=== PATIENT | male | born 1985 | race Caucasian/White ===

== ENCOUNTER 2023-12-17 09:09 | Outpatient (CLI) | payer BC, SELFPAY | END 2023-12-17 09:10 | disposition home or self-care (01) | PROVIDERS: PCP Family Medicine; Visit Provider Family Medicine | DX: R53.83 Other fatigue (principal); R06.09 Other forms of dyspnea; Z13.29 Encounter for screening for other suspected endocrine disorder | CPT/HCPCS: 80053; 84443 ==

== ENCOUNTER 2025-05-04 13:36 | Outpatient (CLI) | payer OTHER, SELFPAY | END 2025-05-04 13:37 | disposition home or self-care (01) | PROVIDERS: PCP Family Medicine; Visit Provider Family Medicine | DX: Z01.818 Encounter for other preprocedural examination (principal); Z82.49 Family history of ischemic heart disease and other diseases of the circulatory system | CPT/HCPCS: 80048; 82465; 83718 ==

== ENCOUNTER 2025-05-11 06:20 | Day surgery (SDC) | payer OTHER, SELFPAY ==
[2025-05-11] VITALS (17 sets, daily range): BP systolic 103–124; BP diastolic 66–94; PULSE 60–85; RESP 14–16; TEMP 36.7–37.7; O2SAT 72–98; BMI 24.0
[2025-05-11] MEDS: SODIUM CHLORIDE 0.9 % (FLUSH) 10 ML SYRINGE IVF (07:08)
[2025-05-11] MEDS: LACTATED RINGERS 1000 ML 1,000 ML 100 ML IV ×2 (07:08→10:16)
--- NOTE | 2025-05-11 07:23 | W.PM.H&PU ---
History & Physical Update History & Physical Update H&P Reviewed and patient assessed: No changes noted
--- NOTE | 2025-05-11 07:24 | PM.ORPRC ---
Procedure Note Date of procedure: 05/11/25 Procedure: PREOPERATIVE DIAGNOSIS: 1. Right knee medial meniscus bucket-handle tear POSTOPERATIVE DIAGNOSIS: 1. Right knee medial meniscus bucket-handle tear PROCEDURE: 1. Right knee arthroscopic inside-out medial meniscus repair SURGEON: Yoni Simpson M.D. ASSISTANTS: Светлана Riojas P.A.-C.; Ronnie Howard Surgical assistants were critical for this case to aid in patient positioning, knee manipulation, instrument exchange, suture management, and wound closure. ANESTHESIA: Spinal EBL: 5 mL TOURNIQUET: 111 minutes at 250 mmHg COMPLICATIONS: None evident IMPLANTS: Arthrex SutureTape sutures INDICATIONS: Patient is a 39-year-old male with recent history of right knee pain and mechanical symptoms. MRI was performed, which revealed displaced bucket-handle medial meniscus tear. Recommendation was subsequently made for surgical intervention consisting of right knee arthroscopic medial meniscus repair to reduce allow for meniscus healing, reduce knee pain, improve knee function, and reduce risk and rate of arthritis progression. Prior to surgery, the risks and benefits of the procedure were discussed with patient, all questions were answered, and informed consent was obtained. FINDINGS: Examination under anesthesia revealed negative Emely's and posterior drawer. Knee was stable to varus and valgus stress. Arthroscopic examination revealed bucket-handle tear involving the posterior horn and body of the medial meniscus. There was also a small radial tear in the white-white zone at the junction of the anterior horn and posterior horn. Anterior root, posterior root, and anterior horn were intact. There was normal appearing cartilage in the medial, lateral, and patellofemoral compartments. ACL, PCL, and lateral meniscus were intact. No intra-articular loose bodies. DESCRIPTION OF PROCEDURE: Patient was seen preoperatively and operative site was marked. He was then brought to the operating room where spinal anesthesia was administered. Patient was then placed supine on the operating table and given IV Ancef preoperatively for prophylaxis. A tourniquet was placed on the operative thigh. The operative lower extremity was prepped and draped in the appropriate sterile fashion, and the operative leg was placed into the leg davis. A surgical time-out was performed confirming patient identity, surgical site, and procedure. The operative lower extremity was exsanguinated and tourniquet inflated to 250 mmHg. Anterolateral and anteromedial portal sites were injected with 0.25% bupivacaine with epinephrine. Anterolateral portal established with an 11 blade. Anteromedial portal was established after localization with spinal needle. A portion of the retropatellar fat pad was removed with the shaver to allow for adequate visualization. Diagnostic arthroscopy was performed with findings as noted above. Attention was then directed to the repair of the medial meniscus. The meniscus was then reduced using a probe. After the meniscus was reduced, tear site was prepped with the arthroscopic rasp. An incision measuring approximately 4 cm was then made medially along the posterior border of the tibia centered slightly below the joint line. Incision was carried through subcutaneous tissues with care taken to protect the saphenous nerve. Sartorius fascia was incised and dissection was carried deep posterior to the medial collateral ligament. Joint capsule was identified and plane between the joint capsule and posterior structures was developed. A speculum cannula was then placed in this interval to protect posterior structures from the meniscus repair needles. Meniscus repair was then performed using the Arthrex ZoneNavigator system to pass FiberTape sutures in both vertical and horizontal mattress fashion on both the superior and inferior surface of the meniscus. A total of 7 sutures were used. After all sets of sutures were passed, sutures were tensioned and tied over the top of the joint capsule posteriorly. Remnant sutures were then cut and removed. A probe was then introduced into the joint and meniscus was noted to be firmly fixed in anatomic position. The radial tear at the junction of the posterior horn and body was gently debrided with the arthroscopic shaver. A power pick was then used to microfracture the notch to create bone bleeding to assist in meniscus healing. The tourniquet was then released and blood was noted to emanate from the power pick microfracture sites. At this stage, surgical instruments were removed, and excess fluid was drained from the joint. A posterior medial incision was irrigated with normal saline. Sartorius fascia was repaired with 2-0 Vicryl [id number] interrupted sutures. Skin incision was closed with 2-0 Vicryl and 2-0 Stratafix. Portal sites were closed with 3-0 Monocryl subcuticular stitches. Sterile dressings were applied, and the operative extremity was placed into a hinged knee brace. The patient was awoken from anesthesia and transferred to the PACU in stable condition. PLAN: 1. Ice and elevation for pain and swelling. 2. Acetaminophen and oxycodone as needed for pain control. 3. Aspirin 81 mg twice daily for 2 weeks for DVT prophylaxis. 4. Weight-bearing as tolerated with brace locked in extension. Use crutches as needed for assistance with ambulation. 5. Knee brace to be locked in extension when ambulating. Brace may be unlocked and knee flexed to 90? when not ambulating. 6. Knee range of motion and quad sets/straight leg raise regularly. 7. Physical therapy per the Standard Meniscus Repair Rehabilitation Protocol. 8. Follow up in orthopedic clinic in 1-2 weeks for a wound check.
[2025-05-11] MEDS: BUPIVACAINE 0.25 %/EPI 1:200K 30 ml INJECTION (08:12)
--- NOTE | 2025-05-11 10:33 | P.ANES_ITS ---
Anesthesia Charges Start Date/Time Anesthesia Start Date: 05/11/25 Anesthesia Start Time: 07:36 Stop Date/Time Anesthesia Stop Date: 05/11/25 Anesthesia Stop Time: 10:40 Coding CPT Codes CPT Codes: ANESTH KNEE JOINT SURGERY - 55010 ([id number]) P2 - PATIENT W/MILD SYST DISEASE, QK - CALENDER ROLL PRESS OPERATOR 2-4 CNCRNT ANES PROC, QX - PULMONOLOGIST INTENSIVIST SVC W/ MD MED DIRECTION
--- NOTE | 2025-05-11 10:33 | W.ANESCHARGE ---
Anesthesia Charges Start Date/Time Anesthesia Start Date: 05/11/25 Anesthesia Start Time: 07:36 Stop Date/Time Anesthesia Stop Date: 05/11/25 Anesthesia Stop Time: 10:40 Coding CPT Codes CPT Codes: ANESTH KNEE JOINT SURGERY - 73254 ([id number]) P2 - PATIENT W/MILD SYST DISEASE, QK - ELECTRICAL HIGH TENSION TESTER 2-4 CNCRNT ANES PROC, QX - MELT SUPERVISOR SVC W/ MD MED DIRECTION
--- NOTE | 2025-05-11 10:44 | W.PM.NB ---
Nerve Block Nerve Block Time Seen by Provider: :28 Date Seen: 05/11/25 Type of block requested by surgeon for post-operative analgesia: geniculars Side: right Time out performed: Yes Verification of patient name: Yes Verification of date of : Yes Site marking: site marked Name of person performing procedure: Jasen Continuous monitoring Was continuous monitoring of O2 sat, B/P, diagnostic cardiac sonographer, recorded every 15 minutes?: Yes Procedure Checklist: sterile prep, needles and gloves Ultrasound guided. Images saved: No Medications given in 5ml increments after negative aspiration: Ropivicaine %: 0.5 mL: 15 Needle gauge: 25 Precedex (mcg): 25 Patient tolerated procedure well: Yes Block Charges Block Charge (with Pro Fee): Genicular Nerve Block Use of Ultrasound Machine for Block: No
--- NOTE | 2025-05-11 10:46 | P.ANES_ITS ---
Anesthesia Charges Start Date/Time Anesthesia Start Date: 05/11/25 Anesthesia Start Time: 07:36 Stop Date/Time Anesthesia Stop Date: 05/11/25 Anesthesia Stop Time: 10:40 Coding CPT Codes CPT Codes: ANESTH KNEE JOINT SURGERY - 13931 ([id number]) P2 - PATIENT W/MILD SYST DISEASE, QK - UNIFORM CAP OPERATOR 2-4 CNCRNT ANES PROC, QX - TRAFFIC COUNTER SVC W/ MD MED DIRECTION
--- NOTE | 2025-05-11 10:46 | W.ANESCHARGE ---
Anesthesia Charges Start Date/Time Anesthesia Start Date: 05/11/25 Anesthesia Start Time: 07:36 Stop Date/Time Anesthesia Stop Date: 05/11/25 Anesthesia Stop Time: 10:40 Coding CPT Codes CPT Codes: ANESTH KNEE JOINT SURGERY - 96104 ([id number]) P2 - PATIENT W/MILD SYST DISEASE, QK - PLATFORM CONSULTANT 2-4 CNCRNT ANES PROC, QX - FIRE CONTROL TECHNICIAN SVC W/ MD MED DIRECTION
[2025-05-11] MEDS: OxyCODONE/APAP 5-325 TABLET PO (11:44)
--- NOTE | 2025-05-11 13:05 | REH.PT ---
Pt provided and fit for axillary crutches. No AD training needed per pt.
== END 2025-05-11 12:55 | disposition home or self-care (01) ==
PROVIDERS: PCP Family Medicine; Visit Provider Orthopaedic Surgery
PROC: (CPT 29870; principal; 2025-05-11 07:45)
DX: S83.211A Bucket-handle tear of medial meniscus, current injury, right knee, initial encounter (principal); G89.18 Other acute postprocedural pain
CPT/HCPCS: 29882; 01400; 64454; A9270; J0690; J1100; J1171; J2250; J2405; J2704; J2795; J3010; J3490; J7120; L1833

== ENCOUNTER 2025-05-12 20:24 | Emergency (ER) | payer OTHER, SELFPAY ==
[2025-05-12 20:25] VITALS: BP 133/78; PULSE 104; RESP 16; TEMP 37; O2SAT 95; BMI 24.7
--- OUTSIDE RECORDS SUMMARY | 2025-05-12 20:27 | XMS_ITS | Clinical Summary ---
Author Organization [facility] Address [address] [place] [id number] Care Team Providers Care Car Hostler Name Role Phone Pcp, No Primary Care Provider Unavailabl e Allergies No known active allergies Medications tacrolimus (PROTOPIC) 0.1 % ointment APPLY TOPICALLY TO THE AFFECTED AREA TWICE DAILY NEEDED FOR MILD FLARES Active Active Problems Problem Noted Date Diagnosed Date Other acne 09/21/2006 Attention deficit disorder with hyperactivity(31 4.01) 09/21/2006 Injury, other and unspecified, shoulder and uppe r arm 09/21/2006 Encounters Date Type Department Care Team Description 04/18/[address] [facility] [address] [place] [address] Modesto Carson MD Referral (ortho surgeon ) 04/16/[address] [facility] [address] [place] [address] Modesto Carson MD Questions (SUMA signed) 04/13/2025 2:40 PM CDT Office Visit [facility] [address] [place] [address] Modesto Carson MD [facility] (Follow-up Work Comp DOI: 03/15/2025 RIGHT Knee/Review MRI) 04/13/2025 Travel 04/11/2025 10:17 AM CDT - 04/11/2025 11:59 PM CDT Hospital Encounter [facility] [address] [facility] [place] [address] Modesto Carson MD Encounter related to worker's compensation claim; Acute pain of right knee 04/11/2025 Travel 04/09/2025 10:20 AM CDT Office Visit [facility] [address] [facility] [place] [address] Modesto Carson MD Occ Med (Follow-up RIGHT Knee injury at work DOI 03/15/2025) 04/09/2025 Travel 03/19/2025 9:55 AM CDT Office Visit [facility] [address] [facility] [place] [address] Modesto Carson MD Occ Med (Consultation for RIGHT Knee injury that happened while at work/DOI 03/15/2025) 03/19/2025 Travel 03/16/2025 Orders Only [facility] Scanner 1 scan: (1-Ord) [facility], KNEE RT 3 V, 03/16/2025 03/16/[address] [facility] [address] [facility] [place] [address] Pcp, No Appointment Request (UNABLE TO SCHEDULE WITHIN 3 DAYS) from Last 3 Months Immunizations Immunization Administration Dates Next Due DTP 02/05/1992, 8,04/16/1987,02/12/1987 ,1986 HIB PRP-D (ProHIBIT) 04/01/1988 Hepatitis A (Adult) 08/06/2008 Hepatitis B (Peds) 07/09/2000,02/02/2000, 000 MMR 10/10/1997,01/17/1988 Meningococcal Vaccine (Menactra) 08/06/2008 Oral Polio Vaccine 02/05/1992,04/01/1988, 987,1986 Td (Age >=7 Years) 10/10/1997 Tdap 08/06/2008 Family History Medical History Relation Name Comments Seizures Brother after concussio n No Known Problems Father ADD / ADHD Mother GRACIE disease Mother Thyroid Disease Mother Heart attack Paternal Grandfather No Known Problems Paternal Grandmother Relation Name Status Comments Brother Alive Father Alive Mother Alive Paternal Grandfather Paternal Grandmother Alive Social History Tobacco Use Types Packs/Day Years Used Date Smoking Tobacco: Every Day Cigarettes Smokeless Tobacco: Former Tobacco Cessation:Ready to Q uit: Not Asked; Counseling Given: Not Answered Alcohol Use Standard Drinks/Week Comments Yes 21 (1 standard drink = 0.6 oz pu re alcohol) 4-5 beer every day PHQ-2 Answer Date Recorded PHQ-2 Score 2 09/10/2018 Social Connections Answer Date Recorded Do you often feel lonely or isolated from those around you? 0 03/19/2025 Financial Resource Strain Answer Date R ecorded Difficulty of Paying Living Expenses 3 03/19/2025 Difficulty of Paying Living Expenses Not on file 03/19/2025 Food Insecurity Answer Date Recorded Do you worry your food will run out before you are able to buy more? 1 03/19/2025 Transportation Needs Answer Date Record ed Does lack of transportation keep you from medica l appointments? 1 03/19/2025 Does lack of transportation keep you from work, meetings or getting things that you need? 1 03/19/2025 Housing Stability Answer Date Recorded What is your housing situation today? 1 03/19/2025 Utilities Answer Date Recorded Do you have trouble paying f or utilities (for example, heat, electricity, water, phone)? 1 03/19/2025 Sex and Gender Information Value Date Recorded Sex Assigned at Not on file Legal Sex Male 5:26 AM DATA PROCESSING SUPERVISOR Gender Identity Not on file Sexual Orientation Not on file Obstetrics History Last Filed Vital Signs Vital Sign Reading Time Taken Comments Blood Pressure 116/77 04/13/2025 2:38 PM CDT Pulse 75 04/13/2025 2:38 PM CDT Temperature 36.9 C (98.4 F) 02/02/2018 4:09 PM CDT Respiratory Rate 20 02/02/2018 4:09 PM CDT Oxygen Saturation 97% 04/13/2025 2:38 PM CDT Inhaled Oxygen Concentration - - Weight 79.2 kg (174 lb 8 oz) 04/09/2025 10:27 AM CDT Height 181 cm (5' 11.26) 02/08/2018 3:43 PM CDT Body Mass Index 24.16 02/08/2018 3:43 PM CDT Plan of Treatment Health Maintenance Due Date Last Done Comments HIV for age 15-65 2001 Hepatitis C screening for ag e 18-79 2004 Pneumococcal series for age 6-49 (1 of 2 - PCV) 2005 HPV series for age 9-45 (1 - 3-dose SCDM series) 2013 Tetanus booster 08/06/2018 08/06/2008, 10/10/1997 BMI (ht and wt on same day) for age 18+ 02/08/2019 02/08/2018, 02/02/2018, 06/10/2017, Additional history exists Depression screening for age 12+ 02/10/2019 02/10/2018, 02/08/2018, 07/08/2016 Lipids for age 35-44 2021 Influenza Vaccine (#1) 2025 RSV vaccine for adults or (1 - 1-dose 75+ series) 2061 Hepatitis B series for 19+ Completed 07/09, 02/02/2000, 01/01/2000 Procedures Procedure Name Priority Date/Time Associated Diagnosis Comments MR KNEE RIGHT WO Routine 04/11/2025 11:1 2 AM CDT Encounter related to worker's compensation claim Acute pain of right knee SCAN-RADIOLOGY REPORT 03/16/2025 12:00 AM CDT from Last 3 Months Results * MR KNEE RIGHT WO (04/11/2025 11:12 AM CDT) Anatomical Region Laterality Modality KNEE R Magnetic Resonan ce 04/11/2025 3:14 PM CDT Impressions 04/11/2025 3:14 PM CDT 1. Displaced bucket-handle tear of the medial meniscus. 2. Moderate joint effusion. 3. Mild chronic thickening of the MCL. No acute MCL injury. 4. Posterolateral corner capsular edema. 5. ACL intact. Dictated by Floyd Cardona MD @ 04/11/2025 3:14:12 PM (Electronically Signed) Narrative 04/11/2025 3:14 PM CDT For Patients: As a result of the Cures Act, medical imaging exams and procedure reports are released immediately into your electronic medical record. You may view this report before your referring provider. If you have questions, please contact your health care provider. CLINICAL INDICATION: Acute right knee pain. COMPARISON STUDIES: Radiographs 03/16/2025. TECHNICAL: Noncontrast MRI of the right knee. 1.5 gonzález MRI scanner. Axial, sagittal and coronal T1, PD, PD FS and T2 FS images. FINDINGS: MEDIAL COMPARTMENT: Medial Meniscus: There is a displaced bucket-handle tear of the medial meniscus with the bucket-handle portion of the meniscus displaced laterally to the intercondylar notch. This is noted on coronal PD fat-sat image number 20 of series 6 for example. Articular Cartilage: Maintained. LATERAL COMPARTMENT: Lateral Meniscus: Intact. Articular Cartilage: Maintained. PATELLOFEMORAL COMPARTMENT: Articular Cartilage: Maintained. LIGAMENTS: Anterior Cruciate Ligament: Intact. Posterior Cruciate Ligament: Intact. MEDIAL COLLATERAL LIGAMENT AND POSTEROMEDIAL CORNER COMPLEX: Medial Collateral Ligament: Slight chronic thickening of the proximal MCL. No acute MCL injury. Medial Head of the Gastrocnemius and Semimembranosus Tendons: Normal. LATERAL COLLATERAL LIGAMENT COMPLEX AND POSTEROLATERAL CORNER COMPLEX: Fibular Collateral Ligament: Normal. Distal Biceps Femoris Tendon Complex: Normal. Iliotibial Band: Normal. Popliteus Tendon: Normal. Posterolateral Corner Capsule: Mild posterolateral corner capsular edema. EXTENSOR MECHANISM: Distal Quadriceps Tendon: Intact. Patellar Tendon: Intact. Medial Patellar Retinaculum and Medial Patellofemoral Ligament: Intact. Lateral Patellar Retinaculum: Intact. Normal patellar alignment. No patella ashley. Normal trochlear depth. Normal lateral trochlear inclination. JOINT SPACE AND CAPSULE: Moderate joint effusion. BONES AND SOFT TISSUES: No acute fracture or avascular necrosis.No significant popliteal cyst.Subcutaneous edema is present. Procedure Note Floyd Cardona MD - 04/11/2025 For Patients: As a result of the 21st Century Cures Act, medical imagingexams and procedure reports are released immediately into your electronicmedical record. You may view this report before your referring provider.If you have questions, please contact your health care provider. CLINICAL INDICATION: Acute right knee pain. COMPARISON STUDIES: Radiographs 03/16/2025. TECHNICAL: Noncontrast MRI of the right knee. 1.5 gonzález MRI scanner. Axial, sagittaland coronal T1, PD, PD FS and T2 FS images. FINDINGS: MEDIAL COMPARTMENT: Medial Meniscus: There is a displaced bucket-handle tear of the medialmeniscus with the bucket-handle portion of the meniscus displacedlaterally to the intercondylar notch. This is noted on coronal PD fat-satimage number 20 of series 6 for example. Articular Cartilage: Maintained. LATERAL COMPARTMENT: Lateral Meniscus: Intact. Articular Cartilage: Maintained. PATELLOFEMORAL COMPARTMENT: Articular Cartilage: Maintained. LIGAMENTS: Anterior Cruciate Ligament: Intact. Posterior Cruciate Ligament: Intact. MEDIAL COLLATERAL LIGAMENT AND POSTEROMEDIAL CORNER COMPLEX: Medial Collateral Ligament: Slight chronic thickening of the proximal MCL.No acute MCL injury. Medial Head of the Gastrocnemius and Semimembranosus Tendons: Normal. LATERAL COLLATERAL LIGAMENT COMPLEX AND POSTEROLATERAL CORNER COMPLEX: Fibular Collateral Ligament: Normal. Distal Biceps Femoris Tendon Complex: Normal. Iliotibial Band: Normal. Popliteus Tendon: Normal. Posterolateral Corner Capsule: Mild posterolateral corner capsularedema. EXTENSOR MECHANISM: Distal Quadriceps Tendon: Intact. Patellar Tendon: Intact. Medial Patellar Retinaculum and Medial Patellofemoral Ligament: Intact. Lateral Patellar Retinaculum: Intact. Normal patellar alignment. No patella ashley. Normal trochlear depth. Normallateral trochlear inclination. JOINT SPACE AND CAPSULE: Moderate joint effusion. BONES AND SOFT TISSUES: No acute fracture or avascular necrosis.No significant poplitealcyst.Subcutaneous edema is present. IMPRESSION: 1. Displaced bucket-handle tear of the medial meniscus. 2. Moderate joint effusion. 3. Mild chronic thickening of the MCL. No acute MCL injury. 4. Posterolateral corner capsular edema. 5. ACL intact. Dictated by Floyd Cardona MD @ 04/11/2025 3:14:12 PM (Electronically Signed) Modesto Carson MD MR Final Res ult * SCAN-RADIOLOGY REPORT (03/16/2025 12:00 AM CDT) Anatomical Region Laterality Modality Other us Scanner OTHER Final Result from Last 3 Months Insurance [address] [place] [id number] [facility] [employer] Care Teams Car Hostler Relationship Specialty Start Date End Date Pcp, No . PCP - General 07/28/13
--- OUTSIDE RECORDS SUMMARY | 2025-05-12 20:27 | XMS_ITS | Clinical Summary ---
Author Organization [employer] [facility] Address [address] [address] Phone Care Team Providers Care Cottage Master Name Role Phone Unavailable Primary Care Provider Unavailabl e Allergies No known active allergies Medications No known medications Active Problems No known active problems Social History Tobacco Use Types Packs/Day Years Used Date Smoking Tobacco: Every Day Smokeless Tobacco: Never Sex and Gender Information Value Date Recorded Sex Assigned at Not on file Legal Sex Male 12:42 PM CDT Gender Identity Not on file Sexual Orientation Not on file Last Filed Vital Signs Vital Sign Reading Time Taken Comments Blood Pressure 129/79 12/21/2020 9:38 AM CDT Pulse 90 12/21/2020 9:38 AM CDT Temperature 36.8 C (98.2 F) 12/21/2020 9:38 AM CDT Respiratory Rate 14 12/21/2020 9:38 AM CDT Oxygen Saturation 97% 12/21/2020 9:38 AM CDT Inhaled Oxygen Concentration - - Weight 77.1 kg (170 lb) 12/21/2020 9:38 AM CDT Height - - Body Mass Index - - Plan of Treatment Health Maintenance Due Date Last Done Comments Hepatitis B Vaccine (Standin g Order) (1 of 3 - 19+ 3-dose series) 2005 PERTUSSIS (Standing Order) 2005 TETANUS (Standing Order) 2005 COVID-19 Vaccine (2024-2 6 season) 2025 Influenza Vaccine Seasonal (Standing Order) (#1) 2025 HPV Vaccine (Standing Order) Aged Out No longer eligible based on patient's age to complete this topic Pneumococcal/PCV20 Vaccine: Pediatrics (2-5 yrs) and At-Risk Patients (6-49 yrs) (Standing Order) Aged Out No longer eligible b ased on patient's age to complete this topic
--- NOTE | 2025-05-12 20:39 | ED_ITS ---
HPI - General Adult General Chief complaint: Post Op Complication Stated complaint: Post Surgery Complications Time Seen by Provider: 05/12/25 20:37 History of Present Illness HPI narrative: surgery on right knee, yesterday. this afternoon right root is changing color with increased edema. Numb and tingly to right foot. 39-year-old man presenting to the emergency department with concern potential blood clot in his right leg. Yesterday had arthroscopic repair of bucket-handle tear medial meniscus. Did receive block during the surgery. It sounds like by about 11:00 p.m. yesterday block had worn off. Has been persistently in quite a bit of pain since. Was discharged with 5 mg tabs oxycodone. Under the understanding that he is to take 1 at a time. Today began to note his right foot getting darker in color and there was swelling the ankle and foot area relative to the left. Has continued in lock out brace and has not removed surgical dressing yet. He does show me pictures his foot. I can appreciate a subtle darkening. Did spend more time upright today. Did not sleep at all last night apparently. Chest pain or shortness of breath. Also reports some numbness or tingliness in the foot; more laterally I think. I do review surgical notes. No complications noted. Related Data Home Medications ?Medication ?Instructions ?Recorded ?Confirmed roflumilast 0.3 % topical cream 1 applic topical QDAY 09/18/24 05/11/25 (Zoryve) tacrolimus 0.1 % topical ointment topical BID PRN 09/0905/04/25 Previous Rx's ?Medication ?Instructions ?Recorded aspirin 81 mg chewable tablet 81 mg PO BID DVT prevent ion 14 05/11/25 days #28 tabs ondansetron HCl 4 mg tablet 4 - 8 mg (1 - 2 x 4 mg) PO Q6H PRN 05/14/25 nausea and vomiting #30 tabs oxycodone 5 mg tablet 5 mg PO Q4H PRN pain #30 tab s 05/14/25 acetaminophen 500 mg capsule 1,000 mg (2 x 500 mg) PO Q6H PRN 05/18/25 pain #60 caps Allergies Allergy/AdvReac Type Severity Reaction Status Date / Time No Known Drug Allergies Allergy Verified 05/11/25 06:30 Review of Systems Status of ROS: Reports: 6 or more systems reviewed and unremarkable except as noted in History and below [facility] Medical History Viral warts, unspecified ?B07.9 - Viral wart, unspecified (ICD-10) Varicella without mention of complication ?B01.9 - Varicella without complication (ICD-10) Attention deficit disorder with hyperactivity ?F90.9 - Attention-deficit hyperactivity disorder, unspecified type (ICD-10) Injury, other and unspecified, shoulder and upper arm ?S46.909A - Unspecified injury of unspecified muscle, fascia and tendon at shoulder and upper arm level, unspecified arm, initial encounter (ICD-10) Other acne ?L70.8 - Other acne (ICD-10) Preauricular sinus and cyst ?Q18.1 - Preauricular sinus and cyst (ICD-10) Family History Family/Other Thyroid disease ASCVD (arteriosclerotic cardiovascular disease) Social History Narrative: tobacco use Smoking Status: Current every day smoker What tobacco products do you use: cigarettes Do you use any of these nicotine containing products: None Non-prescribed substance use: denies use Caffeine: Yes Exam Narrative: Exam Narrative: Pleasant. Calm though clearly in a lot of pain with any manipulation of his right knee. Did remove the brace to examine further. Is still with Barrera wrap over padded gauze wrap from surgery. Do not appreciate much in the way of swelling over lower leg, ankle or foot at this time. Good pulses, foot is warm. I do remove Barrera wrap to visualize a little better. I do not see any erythema but definitely did not get all the way up to the knee. No evidence of bleeding on bandages. Const: Vital Signs, click to edit/add: Vital Signs - 24 hr 05/12/25 20:25 Temperature 98.6 F Pulse Rate [Right Pulse Oximeter] 104 H Respiratory Rate 16 Blood Pressure [Ri ght Upper Arm] 133/78 Pulse Oximetry 95 Oxygen Delivery Me thod Room Air Documenting provider has reviewed patient's vital signs: yes Course Vital Signs Vital signs: Initial Vital Signs Temperature 98.6 F 05/12/25 20:25 Temperature Source Temporal Artery Scan 05/12/25 20:25 Pulse Rate 104 H 05/12/25 20:25 Pulse Rhythm Regular 05/12/25 20:25 Respiratory Rate 16 05/12/25 20:25 Blood Pressure 133/78 05/12/25 20:25 Blood Pressure Mean 96 05/12/25 20:25 Blood Pressure Position Standing 05/12/25 20:25 Pulse Oximetry 95 05/12/25 20:25 Oxygen Delivery Method Room Air 05/12/25 20:25 Vital Signs Temperature 98.6 F 05/12/25 20:25 Pulse Rate 104 H 05/12/25 20:25 Respiratory Rate 16 05/12/25 20:25 Blood Pressure 133/78 05/12/25 20:25 Pulse Oximetry 95 05/12/25 20:25 Oxygen Delivery Method Room Air 05/12/25 20:25 Temperature 98.6 F 05/12/25 20:25 Pulse Rate 104 H 05/12/25 20:25 Respiratory Rate 16 05/12/25 20:25 Blood Pressure 133/78 05/12/25 20:25 Pulse Oximetry 95 05/12/25 20:25 Oxygen Delivery Method Room Air 05/12/25 20:25 Medications Administered Medications: Discontinued Medications Generic Name Dose Route Start Last Admin Trade Name Freq PRN Reason Stop Dose Admin Ibuprofen 600 mg 05/12/25 20:55 05/12/25 21:06 Ibuprofen 200 Mg Tablet PO 05/12/25 20:56 600 mg ONCE ONE Administration Oxycodone/Acetaminophen 2 tab 05/12/25 20:55 05/12/25 21:07 Oxycodone/Apap 5-325 Tablet PO 05/12/25 20:56 2 tab ONCE ONE Administration Medical Decision Making MDM Narrative Medical decision making narrative: My initial impression is this is more an issue of needing to establish adequate pain control; got behind. I do not appreciate much in the way unusual swelling about the knee. Is clearly well-perfused. I do not see evidence at this time of an occlusive clot. Would be rather early for that and I do not think there is an infection here; also rather early for an infection to present. I also think some of the discomfort that he is experiencing, numbness for example as well as the swelling that they had appreciated, is related to fluid shifts/swelling. Likely the fibular nerve is getting a little compression. Does not sound as though there are restrictions on ibuprofen. Furthermore taking aspirin anyway which should be much more likely to contribute to bleeding. Given ibuprofen and 2 tabs of Percocet here in the emergency depart ment. Again I do not think there is evidence here a DVT. I did return though with an ultrasound to further evaluate his leg. At 3 points that I can get to, not wanting to completely remove surgical dressing in the posterior calf and then 1 above the knee in the posterior thigh, all vasculature appears compressible. No clot evident. Would continue to monitor closely. See patient discharge plan for further discussion I do think that the numbness and transient swelling/discoloration that you saw is likely secondary to some swelling about the knee and fluid mobilizat ion/shifting. Contributed today by a little more activity? If you are experiencing some more swelling that does not resolve or improve with a couple hours of elevation, then I would consider being re-evaluated. Would also contact your surgical team with your concerns. They might want to reassess if this numbness is continuing. You are already taking a blood thinner of sorts in the form of aspirin. Provided there were no restrictions on ibuprofen, you can take up to 800 mg of ibuprofen per dose. An alternative to that would be up to 500 mg of naproxen twice daily. You can take to 1000 mg of acetaminophen per dose which can be combined with any of the above. It is okay to take 2 tablets of your oxycodone at the same time if really needed. Let your surgical team know however if you are needing more pain medication to keep this pain at a tolerable level. Medical Records Medical records reviewed: Yes I reviewed the patient's medical records Discharge Plan Discharge Clinical Impression: Post-operative pain, Post-operative numbness Patient Disposition: Home w/ Parent or Adult Condition: Stable Instructions: Narcotic Safety (ED) Additional Instructions: I do think that the numbness and transient swelling/discoloration that you saw is likely secondary to some swelling about the knee and fluid mobilization/shifting. Contributed today by a little more activity? If you are experiencing some more swelling that does not resolve or improve with a couple hours of elevation, then I would consider being re-evaluated. Would also contact your surgical team with your concerns. They might want to reassess if this numbness is continuing. You are already taking a blood thinner of sorts in the form of aspirin. Provided there were no restrictions on ibuprofen, you can take up to 800 mg of ibuprofen per dose. An alternative to that would be up to 500 mg of naproxen twice daily. You can take to 1000 mg of acetaminophen per dose which can be combined with any of the above. It is okay to take 2 tablets of your oxycodone at the same time if really needed. Let your surgical team know however if you are needing more pain medication to keep this pain at a tolerable level. Activity Level: No Restrictions Discharge Diet: Regular Prescriptions: No Action tacrolimus 0.1 % ointment topical BID PRN Zoryve 0.3 % cream 1 applic topical QDAY aspirin 81 mg tablet,chewable 81 mg PO BID 14 Days Qty: 28 0RF ondansetron HCl 4 mg tablet 4 - 8 mg PO Q6H PRN (Reason: nausea and vomiting) Qty: 30 1RF oxycodone 5 mg tablet 5 mg PO Q4H PRN (Reason: pain) Qty: 30 0RF acetaminophen 500 mg capsule 1,000 mg PO Q6H PRN (Reason: pain) Qty: 60 0RF Follow Up/Referrals: Compa Mccloud MD [Primary Care Provider, Family Practice] Stand Alone Forms: [facility] Info Instructions
[2025-05-12] MEDS: IBUPROFEN 200 MG TABLET 600 MG PO (21:06)
[2025-05-12] MEDS: OxyCODONE/APAP 5-325 TABLET 2 TAB PO (21:07)
== END 2025-05-12 21:33 | disposition home or self-care (01) ==
PROVIDERS: Emergency Provider Family Medicine; PCP Family Medicine
DX: G89.18 Other acute postprocedural pain (principal)
CPT/HCPCS: 99283; 99284; A9270